=== PATIENT | male | born 1950 | race Caucasian/White ===

== ENCOUNTER → 2017-01-11 | Outpatient (CLI) | payer OTHER | LOC: BMCIMAGING 12:56 | PROVIDERS: ATTEND Family Medicine | DX: M79.604 Pain in right leg (principal); C61 Malignant neoplasm of prostate ==

== ENCOUNTER → 2017-01-31 | Outpatient (CLI) | payer OTHER | LOC: FIMAGING 07:53 | PROVIDERS: ATTEND Internal Medicine | PROC: CP1Z1ZZ Planar Nuclear Medicine Imaging of Musculoskeletal System, All using Technetium 99m (Tc-99m) (ICD-10-PCS; principal; 2017-01-31) | DX: R93.8 Abnormal findings on diagnostic imaging of other specified body structures (principal); C61 Malignant neoplasm of prostate | CPT/HCPCS: 78306; A9503 ==

== ENCOUNTER → 2017-02-23 | Outpatient (CLI) | payer OTHER | LOC: FIMAGING 09:56 | PROVIDERS: ATTEND Internal Medicine | DX: R93.7 Abnormal findings on diagnostic imaging of other parts of musculoskeletal system (principal); M25.551 Pain in right hip ==

== ENCOUNTER 2017-05-17 09:14 | Emergency (ER) | payer OTHER ==
--- NOTE | 2017-05-17 09:25 | CPEKG ---
Heart Rate: 89 RR Interval: 674 P-R Interval: 156 QRSD Interval: 88 QT Interval: 372 QTC Interval: 453 P Midland: 56 QRS Midland: 60 T Wave Midland: 38 EKG Severity - NORMAL ECG - EKG Impression: SINUS RHYTHM Electronically Signed By: Miko Jo 18-May-2017 08:53:43
--- NOTE | 2017-05-17 09:27 | EDPHY ---
HPI/HX/ROS/PE/MDM Narrative: CHIEF COMPLAINT: Chest pain HPI: The patient is a 65-year-old male, brought in by EMS with complaints of chest pain that started around 11pm. The patent started a new chemotherapy drug for prostate cancer yesterday. During the night the patient developed mild, diffuse chest pain. This pain progressively worsened throughout the night. He tried to get up and walk around and felt dizzy with hot flashes, which he states is a normal side effect of Lupron which he has been on for quite sometime. He felt near syncopal which is new. After lying supine on the ground this resolved. This morning the patient went to [facility] for continued chest pain. He received a nitro patch and Aspirin and was sent here for further evaluation. The patient continues to have chest pain that is worse with deep inhalation. No associated shortness of breath or dizziness. Vitals during transport BP: 120/70, Pulse: 85. REVIEW OF SYSTEMS: Aside from elements discussed in the HPI, a comprehensive 10-point review of systems was reviewed and is negative. PMH: Prostate cancer, HLD. SOCIAL HISTORY: . PHYSICAL EXAM: General: Patient is alert, in no acute distress. ENT: Eyes are normal to inspection. ENT inspection normal. Neck: Normal inspection. Full range of motion. Respiratory: No respiratory distress. Breath sounds normal bilaterally. Cardiovascular: Regular rate and rhythm. Strong peripheral pulses. Abdomen: The abdomen is nontender to palpation. There are no peritoneal signs. There are normal bowel sounds. Back: Normal to inspection. No tenderness to palpation. Skin: Normal color. No rash. Warm and dry. Extremities: Normal appearance. Full range of motion. Neuro: Oriented x3. Normal motor function. Normal sensory function. ED Course: Plan for cardiac workup including chest x-ray, BMP, D-dimer, and Troponin. EKG was ordered and interpreted by myself, normal. Please see [employer] system for official reading. D-dimer and Troponin are within normal limits. Chest x-ray reveals interstitial lung disease. 1200: I discussed findings with the patient. I offered admission, patient declines. - Data Points Imaging Results: Imaging Impressions Chest X-Ray 05/17/17 09:26 Impression: 1. Diffuse interstitial lung disease of uncertain chronicity or stability. 2. Potentially a new solitary lung nodule versus sclerotic lesion in T6. Accommodation: Consider noncontrast high-resolution chest CT which would evaluate the interstitial lung disease as well as a pulmonary nodule. Chest/Thorax CTA 05/17/17 10:38 Impression: 1. 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 2. No pulmonary emboli. 3. No CT correlate to a pulmonary nodule or interstitial lung disease at both of which are likely artifactual and related to soft tissue overlap. A message was left for Sajan Ramirez MD, at 05/17/2017 11:44 General information for patients regarding this examination can be found at [email or web address]. If you have questions or comments about this report, please contact me at (hospital) or [phone] (cell). Imaging: Discussed imaging studies w/ mail caller Radiologist, I viewed and interpreted images myself Laboratory Results: Laboratory Results 05/17/17 09:27 05/17/17 09:27 05/17/17 05/17/17 05/17/17 09:28 09:27 09:27 WBC 6.34 10^3/uL 10^3/uL (3.80-9.50) RBC 4.34 10^6/uL L 10^6/uL (4.40-6.38) Hgb 12.2 g/dL L g/dL (13.7-17.5) Hct 36.6 % L % (40.0-51.0) MCV 84.3 fL fL (81.5-99.8) MCH 28.1 pg pg (27.9-34.1) MCHC 33.3 g/dL g/dL (32.4-36.7) RDW 13.4 % % (11.5-15.2) Plt Count 178 10^3/uL 10^3/uL (150-400) MPV 10.7 fL fL (8.7-11.7) Neut % (Auto) 92.5 % H % (39.3-74.2) Lymph % (Auto) 4.3 % L % (15.0-45.0) Gates % (Auto) 2.5 % L % (4.5-13.0) Eos % (Auto) 0.2 % L % (0.6-7.6) Baso % (Auto) 0.2 % L % (0.3-1.7) Nucleat RBC Rel Count 0.0 % % (0.0-0.2) Absolute Neuts (auto) 5.87 10^3/uL 10^3/uL (1.70-6.50) Absolute Lymphs (auto) 0.27 10^3/uL L 10^3/uL (1.00-3.00) Absolute Monos (auto) 0.16 10^3/uL L 10^3/uL (0.30-0.80) Absolute Eos (auto) 0.01 10^3/uL L 10^3/uL (0.03-0.40) Absolute Basos (auto) 0.01 10^3/uL L 10^3/uL (0.02-0.10) Absolute Nucleated RBC 0.00 10^3/uL 10^3/uL (0-0.01) Immature Gran % 0.3 % % (0.0-1.1) Immature Gran # 0.02 10^3/uL 10^3/uL (0.00-0.10) D-Dimer 0.46 ug/mLFEU ug/mLFEU (0.00-0.50) Sodium 135 mEq/L mEq/L (134-144) Potassium 4.2 mEq/L mEq/L (3.5-5.2) Chloride 103 mEq/L mEq/L (97-110) Carbon Dioxide 19 mEq/l L mEq/l (22-31) Anion Gap 13 mEq/L mEq/L (8-16) BUN 17 mg/dL mg/dL (7-23) Creatinine 0.9 mg/dL mg/dL (0.7-1.3) Estimated GFR > 60 Glucose 113 mg/dL H mg/dL (70-100) Calcium 9.3 mg/dL mg/dL (8.5-10.4) Troponin I < 0.012 ng/mL ng/mL (0-0.034) General Initial Vital Signs: Initial Vital Signs Temperature (C) 37.0 C 05/17/17 09:28 Heart Rate 85 05/17/17 09:28 Respiratory Rate 14 05/17/17 09:28 Blood Pressure 124/74 H 05/17/17 09:28 O2 Sat (%) 98 05/17/17 09:28 O2 Delivery Mode Room Air Allergies/Adverse Reactions: Penicillins Allergy (Verified 08/08/11 07:08) Home Medications: Medication Instructions Recorded Aspirin [Aspirin 81mg (*)] 81 mg PO DAILY 09/26/14 Cholecalciferol Vit D3 [Vitamin D3 1,000 units PO DAILY 09/26/14 (*)] Glucosamine/Chondroitin 1 each PO BID 09/26/14 [Glucosamine/Chondroitin (*)] Herbals/Supplements -Info Only 1 ea PO DAILY 09/26/14 Multivitamins [Multivitamin (*)] 1 each PO DAILY 09/26/14 Bradford-3 Fatty Acids [Fish Oil 1000 1,000 mg PO DAILY 09/26/14 mg (*)] Lupron 05/17/17 Reclast 05/17/17 Zetia 05/17/17 Departure - Departure Disposition: Home, Routine, Self-Care Clinical Impression: Chest pain Qualifiers: Chest pain type: unspecified Qualified Code(s): R07.9 - Chest pain, unspecified Condition: Good Instructions: Chest Pain (ED) Additional Instructions: Follow-up with your primary doctor within 72 hours. Return to the Emergency Department for fever, chest pain, shortness of breath, increasing pain or other worsening of condition. Follow up with a product support specialist for further testing, as soon as possible, within one week. As we discussed, it is impossible to fully rule out heart disease as the cause of your chest pain in the emergency department. We would be happy to reevaluate you and observe you in the hospital at any time. Referrals: Patricio Bauman MD [Medical Doctor] - As per Instructions Report Scribed for: Sajan Ramirez Report Scribed by: Crystal Hirsch Date of Report: 05/17/17 Time of Report: 09:27 Physician Review and Approval Statement: Portions of this note were transcribed by a medical records clerk. I personally performed a history, physical exam, medical decision making, and confirmed accuracy of information the transcribed note.
[2017-05-17 09:30] LABS: % IMMATURE GRANULYOCYTES 0.3 % (0.0-1.1); ABSOLUTE IMMATURE GRANULOCYTES 0.02 10^3/uL (0.00-0.10); ADD DIFF? NO; ADD MORPH? NO; ADD SCAN? NO; ATYPICAL LYMPHOCYTE FLAG 0 (0-99); FRAGMENT RBC FLAG 0 (0-99); HEMATOCRIT 36.6 % (40.0-51.0); HEMOGLOBIN 12.2 g/dL (13.7-17.5); LEFT SHIFT FLG 0 (0-99); LIPEMIA HEMOLYSIS FLAG 80 (0-99); MEAN CELL HEMOGLOBIN 28.1 pg (27.9-34.1); MEAN CELL HEMOGLOBIN CONCENTR. 33.3 g/dL (32.4-36.7); MEAN CELL VOLUME 84.3 fL (81.5-99.8); MEAN PLATELET VOLUME 10.7 fL (8.7-11.7); PLATELET CLUMPS FLAG 10 (0-99); PLATELET COUNT 178 10^3/uL (150-400); RED BLOOD CELL COUNT 4.34 10^6/uL (4.40-6.38); RED CELL DISTRIBUTION WIDTH 13.4 % (11.5-15.2)
[2017-05-17 09:39] LABS: ANION GAP 13 mEq/L (8-16); CALCIUM 9.3 mg/dL (8.5-10.4); CARBON DIOXIDE 19 mEq/l (22-31); CHLORIDE 103 mEq/L (97-110); CREATININE 0.9 mg/dL (0.7-1.3); GLOMERULAR FILTRATION RATE > 60; GLUCOSE 113 mg/dL (70-100); POTASSIUM 4.2 mEq/L (3.5-5.2); SODIUM 135 mEq/L (134-144)
[2017-05-17 09:51] LABS: TROPONIN I < 0.012 ng/mL (0-0.034)
[2017-05-17] MEDS ORDERED: IOPAMIDOL (ISOVUE 370) 100 ML BTL IV ONE (10:43)
[2017-05-17 11:36] VITALS: RESP 18
[2017-05-17 12:19] VITALS: BP 108/66; PULSE 85; TEMP 98.1; O2SAT 97
== END 2017-05-17 12:31 | disposition home or self-care (01) ==
LOC: EDUNIT#
DX: R07.9 Chest pain, unspecified (principal); Z79.82 Long term (current) use of aspirin; Z85.46 Personal history of malignant neoplasm of prostate
CPT/HCPCS: 71020; 71275; 93005; 99285; Q9967

== ENCOUNTER → 2017-07-11 | Outpatient (CLI) | payer OTHER | LOC: BHFA 13:15 | PROVIDERS: ATTEND Internal Medicine Cardiovascular Disease | DX: R55 Syncope and collapse (principal) ==

== ENCOUNTER → 2017-07-18 | Outpatient (CLI) | payer OTHER | LOC: BHFA 09:00 | PROVIDERS: ATTEND Internal Medicine Cardiovascular Disease | DX: R55 Syncope and collapse (principal) | CPT/HCPCS: 78452; 93017; A9500 ==